=== PATIENT | female | born 1960 | race Caucasian/White ===

== ENCOUNTER 2018-10-05 09:11 | Outpatient (CLI) | payer MEDICARE, MEDICAID, SELFPAY ==
[2018-10-06 10:43] LABS: HCT 43.6 % (36.0-46.0); HGB 14.4 g/dL (12.0-15.5); Mean Corpuscular Hemoglobin 29.3 pg (27.0-33.0); Mean Corpuscular Volume 88.6 fL (80-95); Mean Platelet Volume 10.7 fL (8.0-11.0); Platelet Count 301 x1000/uL (130-400); RBC 4.92 m/cumm (4.00-5.20); RBC Distribution Width 13.2 % (11.7-14.6); White Blood Cell Count 6.76 k/cumm (4.4-10.8)
[2018-10-06 10:55] LABS: Hemoglobin A1C 6.1 % (4.5-6.2)
[2018-10-06 13:38] LABS: ALT 51 U/L (12-78); AST 30 U/L (15-37); Albumin 3.8 g/dL (3.4-5.0); Alkaline Phosphatase 96 U/L (46-116); Anion Gap 10.5 mmol/L (3-11); BUN 9 mg/dL (7-18); Bilirubin, Total 0.5 mg/dL (0.2-1.0); CO2 27.5 mmol/L (21.0-32.0); CREATININE 0.76 mg/dL (0.55-1.02); Calcium 9.6 mg/dL (8.5-10.1); Chloride 105 mmol/L (98-107); Glucose 122 mg/dL (70-100); Potassium 4.2 mmol/L (3.5-5.1); Sodium 143 mmol/L (136-145); TSH (W/Ref FT4) 3.72 uIU/mL (0.358-3.74); Total Protein 7.7 g/dL (6.4-8.2)
== END 2018-10-05 09:31 ==
PROVIDERS: PCP Family Medicine; Visit Provider Family Medicine
DX: I10 Essential (primary) hypertension (principal); R73.01 Impaired fasting glucose; G47.33 Obstructive sleep apnea (adult) (pediatric); E03.9 Hypothyroidism, unspecified
CPT/HCPCS: 36415; 80053; 85027; 83036; 84443

== ENCOUNTER 2019-07-28 12:54 | Outpatient (CLI) | payer MEDICARE, MEDICAID, SELFPAY ==
[2019-07-28 10:12] LABS: HCT 46.3 % (36.0-46.0); HGB 15.6 g/dL (12.0-15.5); Mean Corp. HGB Concentration 33.7 g/dL (32.0-36.0); Mean Corpuscular Hemoglobin 29.7 pg (27.0-33.0); Mean Platelet Volume 10.4 fL (8.0-11.0); Platelet Count 354 x1000/uL (130-400); RBC 5.26 m/cumm (4.00-5.20); White Blood Cell Count 8.09 k/cumm (4.4-10.8)
[2019-07-28 10:21] LABS: ALT 33 U/L (14-59); AST 17 U/L (15-37); Albumin 3.7 g/dL (3.4-5.0); Alkaline Phosphatase 98 U/L (46-116); Anion Gap 8.9 mmol/L (3-11); BUN 18 mg/dL (7-18); Bilirubin, Total 0.3 mg/dL (0.2-1.0); CO2 27.1 mmol/L (21.0-32.0); Calcium 9.3 mg/dL (8.5-10.1); Chloride 106 mmol/L (98-107); Glucose 119 mg/dL (74-106); Potassium 4.4 mmol/L (3.5-5.1); Sodium 142 mmol/L (136-145); TSH (W/Ref FT4) 3.44 uIU/mL (0.36-3.74); Total Protein 7.4 g/dL (6.4-8.2)
== END 2019-07-28 13:14 ==
PROVIDERS: PCP Family Medicine; Visit Provider Family Medicine
DX: E03.9 Hypothyroidism, unspecified (principal); E78.5 Hyperlipidemia, unspecified; R73.09 Other abnormal glucose; I27.20 Pulmonary hypertension, unspecified; R56.9 Unspecified convulsions
CPT/HCPCS: 36415; 80053; 85027; 83036; 84443

== ENCOUNTER 2019-10-24 01:24 | Outpatient (CLI) | payer MEDICARE, MEDICAID, SELFPAY ==
--- NOTE | 2019-10-24 14:15 | DI.CTLCSR_ITS ---
EXAM: CT CHEST LUNG CANCER SCREEN CLINICAL HISTORY: SCREENING FOR LUNG CANCER, Z87.891 PERS HX NICOTINE DEPENDENCE TECHNIQUE: Low-dose noncontrast COMPARISON: No exams were available for comparison FINDINGS: There is mild left atrial enlargement. There is minimal aorta calcification. The aorta is normal in d iameter. No coronary artery calcifications are seen. There are no pleural or pericardial effusions or evidence of adenopathy. The visualized portions of the upper abdominal organs are unremarkable. Ther e is linear scarring versus atelectasis in the lingula and left lower lobe. No pulmonary nodules are seen. Flowing osteophytes in the thoracic spine. IMPRESSION: Lung rads category 1, negative. Annual low-dose screening CT is recommended. Lung RADS Cat 1 - Negative: No nodules and definitely benign nodules
== END 2019-10-24 01:44 ==
PROVIDERS: PCP Family Medicine; Visit Provider Family Medicine
DX: Z12.2 Encounter for screening for malignant neoplasm of respiratory organs (principal); Z87.891 Personal history of nicotine dependence; J98.4 Other disorders of lung
CPT/HCPCS: G0297

== ENCOUNTER 2020-09-27 03:50 | Outpatient (CLI) | payer MEDICARE, MEDICAID, SELFPAY ==
[2020-09-27 13:11] LABS: ALT 34 U/L (14-59); AST 16 U/L (15-37); Albumin 3.6 g/dL (3.4-5.0); Alkaline Phosphatase 84 U/L (46-116); BUN 12 mg/dL (7-18); Bilirubin, Total 0.5 mg/dL (0.2-1.0); CREATININE 0.8 mg/dL (0.55-1.02); Calculated LDL 148 mg/dL (<100); Chloride 106 mmol/L (98-107); Cholesterol 197 mg/dL (<200); Glucose 117 mg/dL (74-106); HDL Cholesterol 36 mg/dL (40-60); Potassium 4.1 mmol/L (3.5-5.1); Sodium 144 mmol/L (136-145); TSH (W/Ref FT4) 2.38 uIU/mL (0.36-3.74); Total Protein 6.9 g/dL (6.4-8.2); Triglyceride 66 mg/dL (<150)
== END 2020-09-27 03:51 | disposition home or self-care (01) ==
LOC: LOS 03:50
PROVIDERS: PCP Family Medicine; Visit Provider Family Medicine
DX: E11.9 Type 2 diabetes mellitus without complications (principal); I10 Essential (primary) hypertension; E03.9 Hypothyroidism, unspecified; J44.9 Chronic obstructive pulmonary disease, unspecified; G47.33 Obstructive sleep apnea (adult) (pediatric)
CPT/HCPCS: 36415; 80053; 80061; 83036; 84443

== ENCOUNTER 2021-11-26 04:30 | Outpatient (CLI) | payer MEDICARE, MEDICAID, SELFPAY ==
[2021-11-26 14:46] LABS: Hemoglobin A1C 5.9 % (<5.7)
[2021-11-26 15:23] LABS: ALT 33 U/L (14-59); AST 17 U/L (15-37); Albumin 3.7 g/dL (3.4-5.0); Alkaline Phosphatase 97 U/L (46-116); Anion Gap 6.5 mmol/L (3-11); BUN 16 mg/dL (7-18); Bilirubin, Total 0.5 mg/dL (0.2-1.0); CO2 28.5 mmol/L (21.0-32.0); CREATININE 0.7 mg/dL (0.55-1.02); Calcium 8.7 mg/dL (8.5-10.1); Chloride 101 mmol/L (98-107); Glucose 102 mg/dL (74-106); Potassium 4.3 mmol/L (3.5-5.1); Sodium 136 mmol/L (136-145); Total Protein 7.2 g/dL (6.4-8.2)
== END 2021-11-26 04:31 | disposition home or self-care (01) ==
LOC: LBO 04:30
PROVIDERS: PCP Family Medicine; Visit Provider Family Medicine
DX: R73.01 Impaired fasting glucose (principal); E78.5 Hyperlipidemia, unspecified; I27.20 Pulmonary hypertension, unspecified
CPT/HCPCS: 80053; 83036

== ENCOUNTER 2023-02-16 09:44 | Outpatient (CLI) | payer MEDICARE, MEDICAID, SELFPAY ==
[2023-02-16 12:32] LABS: HCT 46.7 % (36.0-46.0); HGB 15.3 g/dL (11.2-15.7); MCH 28.7 pg (27.0-33.0); MCHC 32.8 % (32.0-36.0); MCV 88 fL (80-95); MPV 9.9 fL (8.0-11.0); Platelet Count 302 10^3/uL (130-400); RBC 5.33 10^6/uL (3.93-5.22); RDW 13.2 % (11.7-14.6); RDW-SD 42.5 fL; WBC 7.27 10^3/uL (4.4-10.8)
[2023-02-16 13:06] LABS: ALT 43 U/L (14-59); AST 20 U/L (15-37); Albumin 3.7 g/dL (3.4-5.0); Alkaline Phosphatase 80 U/L (46-116); Anion Gap 10.6 mmol/L (3-11); BUN 13 mg/dL (7-18); Bilirubin, Total 0.4 mg/dL (0.2-1.0); CO2 29.4 mmol/L (21.0-32.0); CREATININE 0.7 mg/dL (0.55-1.02); Calcium 9.5 mg/dL (8.5-10.1); Chloride 105 mmol/L (98-107); Estimated GFR 98.95 (mL/min/1.73m2); Glucose 123 mg/dL (74-106); Sodium 145 mmol/L (136-145); TSH (W/Ref FT4) 2.05 uIU/mL (0.36-3.74); Total Protein 8.1 g/dL (6.4-8.2)
[2023-02-16 13:10] LABS: Hemoglobin A1C 5.9 % (<5.7)
== END 2023-02-16 09:45 | disposition home or self-care (01) ==
LOC: LOS 09:44
PROVIDERS: PCP Family Medicine; Referring Provider Family Medicine; Visit Provider Family Medicine
DX: E03.9 Hypothyroidism, unspecified (principal); I10 Essential (primary) hypertension; E11.9 Type 2 diabetes mellitus without complications; F25.9 Schizoaffective disorder, unspecified
CPT/HCPCS: 36415; 80053; 85027; 83036; 84443

== ENCOUNTER 2023-08-11 10:18 | Outpatient (REF) | payer MEDICARE, MEDICAID, SELFPAY ==
--- NOTE | 2023-08-11 10:00 | PAPFT_PTH ---
PATIENT: Rosemary Davidson LOC: [facility] U#:[id number] AGE/SX: 63/F ROOM: RE08/11/[address]: Georgette Cloud MD, DC : 1960 BED: DIS: 08/11/2023 SPEC #: [id number] RECD: 08/11/23 12:54 STATUS: CHERRI REDmitriy #: [id number] PATTIE: 08/11/23 10:[address]: Georgette Cloud DEPT: [facility] Cytology RECD BY: Mandy Gray Tissues: 1 - CX/ENDOCX FOR PAP SMEARS Procedures: PAP THIN PREP/UVM Screening HPV DNA PROBE Comments: [id number]
== END 2023-08-11 10:19 | disposition home or self-care (01) ==
LOC: LBN 10:18
PROVIDERS: PCP Family Medicine; Visit Provider Family Medicine
DX: Z12.4 Encounter for screening for malignant neoplasm of cervix (principal); Z11.51 Encounter for screening for human papillomavirus (HPV)
CPT/HCPCS: 88142; 87624

== ENCOUNTER 2023-08-27 10:18 | Outpatient (CLI) | payer MEDICARE, MEDICAID, SELFPAY ==
[2023-08-27 13:32] LABS: Abs Immature Grans 0.03 10^3/uL (0.0-0.06); Absolute Basophil Count 0.06 10^3/uL (0.0-0.2); Absolute Eosinophil Count 0.19 10^3/uL (0.0-0.7); Absolute Monocyte Count 0.46 10^3/uL (0.1-0.8); Absolute Neutrophil Count 4.69 10^3/uL (1.2-6.7); Basophils % 0.8; Eosinophils % 2.4; HCT 43.7 % (36.0-46.0); HGB 14.7 g/dL (11.2-15.7); Immature Grans % 0.4; Lymphocytes % 30.7; MCH 29.8 pg (27.0-33.0); MCHC 33.6 % (32.0-36.0); MCV 89 fL (80-95); MPV 9.5 fL (8.0-11.0); Monocytes % 5.9; Neutrophils % 59.8; Platelet Count 294 10^3/uL (130-400); RBC 4.94 10^6/uL (3.93-5.22); RDW 12.6 % (11.7-14.6); WBC 7.83 10^3/uL (4.4-10.8)
[2023-08-27 13:56] LABS: ALT 46 U/L (14-59); AST 24 U/L (15-37); Albumin 3.2 g/dL (3.4-5.0); Alkaline Phosphatase 89 U/L (46-116); Anion Gap 8.7 mmol/L (3-11); BUN 14 mg/dL (7-18); Bilirubin, Total 0.3 mg/dL (0.2-1.0); CO2 28.3 mmol/L (21.0-32.0); CREATININE 0.6 mg/dL (0.55-1.02); Calcium 9.2 mg/dL (8.5-10.1); Chloride 103 mmol/L (98-107); Estimated GFR 102.06 (mL/min/1.73m2); Glucose 116 mg/dL (74-106); Potassium 4.1 mmol/L (3.5-5.1); Sodium 140 mmol/L (136-145); Total Protein 7.4 g/dL (6.4-8.2)
[2023-09-01 09:09] LABS: 9-Hydroxyrisperidone 28.4 ng/ml; Risperidone (Risperdal) 14.2 ng/ml
== END 2023-08-27 10:19 | disposition home or self-care (01) ==
LOC: LBO 10:18
PROVIDERS: PCP Family Medicine; Visit Provider Family Medicine
DX: R43.1 Parosmia (principal); I10 Essential (primary) hypertension
CPT/HCPCS: 36415; 80053; 82542; 85025

== ENCOUNTER → 2023-09-10 03:00 | Outpatient (CLI) | payer MEDICARE, MEDICAID, SELFPAY ==
--- NOTE | 2023-09-10 08:00 | DI.DEXA_ITS ---
Exam(s) XR DEXA BONE DENSITY W/WO KAREEM EXAM: XR DEXA BONE DENSITY W/WO KAREEM CLINICAL HISTORY: screening for osteoporosis in postmenopausal woman,z78.0 TECHNIQUE: Holoe[employer] Horizon C densitometer analysis of left hip, lumbar spine and left forearm. Lat eral survey image of the thoracic and lumbar spine. COMPARISON: No exams were available for comparison FINDINGS: Lateral view of the thoracic and lumbar spine shows no evidence of compression fractures. Bone mineral density measurements of the lumbar spine correspond to a total T-score of 0.5, in the no rmal range. Bone mineral density measurements of the left hip correspond to a total T-score of 0.5. The femoral neck T-score is 0.0, in the normal range.. Theleft forearm bone mineral density measurements correspond to a T-score of the distal 3rd of 0.5, in the normal range.. IMPRESSION: Normal bone mineral density.
--- NOTE | 2023-09-10 09:00 | DI.CTLCSR_ITS ---
Exam(s) CT CHEST LUNG CANCER SCREEN EXAM: CT CHEST LUNG CANCER SCREEN CLINICAL HISTORY: Screening for lung cancer Z87.891 PERS HX NICOTINE DEPENDENCE TECHNIQUE: Imaging Protocol: Axial computed tomography images with coronal and sagittal reformatted images were created and reviewed. Low dose screening protocol. COMPARISON: CT CT CHEST LUNG CANCER SCREEN from 10/24/2019 FINDINGS: Tracheobronchial tree: No bronchiectasis or mucus plugging.. Mediastinum and [place]: No dominant adenopathy or fluid collection. Pulmonary parenchyma: No consolidation or dominant measurable mass. Minimal emphysematous changes. M ild scarring right middle lobe, lingula and left lower lobe. Lung Nodules: None. Pleura: No effusion. No pneumothorax. Heart: The heart is mildly dilated. No coronary artery calcifications are seen. Aorta: Thoracic aorta non-dilated. Upper abdomen: Unremarkable. Bones: Flowing osteophytes in the thoracic spine. Soft Tissues: Unremarkable. IMPRESSION: No suspicious pulmonary nodules. Lung RADS Cat 1 - Negative: No nodules and definitely benign nodules Lung-RADS 1.0 CATEGORIES: Category 0 - Prior chest CT exam(s) being located for comparison. Category 1 - Annual screening in 12 months. No nodules or definitely benign nodules. Category 2 - Annual screening in 12 months. Benign appearance. Nodules with low likelihood of becomin g active cancer. Category 3 - 6-month follow-up. Probably benign. Short-term follow-up suggested. Nodules with low lik elihood of becoming active cancer. Category 4A - 3-month follow-up and CT/PET if >8 mm in size. Suspicious finding. Findings which requi re additional testing. Category 4B - Findings which require additional testing and tissue sampling. Category 4X - Category 3 or 4 nodules with additional features or imaging findings that increases the suspicion of malignancy. Modifier S- Potentially clinically significant findings (non lung cancer) RADIATION DOSE DELIVERED: 73.26mGy.cm Total DLP DATA REPOSITORY: All CT scans at this facility are submitted to the National Radiology Data Registry (NRDR) Dose Index Registry (DIR) with the [employer] (ACR). RADIATION OPTIMIZATION: All CT scans at this facility use at least one of these dose optimization te chniques: automated exposure control; mA and/or kV adjustment per patient size (includes targeted exa ms where dose is matched to clinical indication); or iterative reconstruction.
== END ==
PROVIDERS: PCP Family Medicine; Visit Provider Family Medicine
DX: Z78.0 Asymptomatic menopausal state (principal); Z87.891 Personal history of nicotine dependence; Z12.2 Encounter for screening for malignant neoplasm of respiratory organs; Z13.820 Encounter for screening for osteoporosis
CPT/HCPCS: 71271; 77080

== ENCOUNTER 2024-05-05 03:34 | Outpatient (CLI) | payer MEDICARE, MEDICAID, SELFPAY ==
[2024-05-05 12:38] LABS: HCT 47.8 % (36.0-46.0); HGB 15.7 g/dL (11.2-15.7); MCH 29.6 pg (27.0-33.0); MCHC 32.8 % (32.0-36.0); MCV 90 fL (80-95); Platelet Count 337 10^3/uL (130-400); RDW 12.6 % (11.7-14.6); RDW-SD 41.6 fL; WBC 7.87 10^3/uL (4.4-10.8)
[2024-05-05 13:09] LABS: ALT 59 U/L (14-59); AST 26 U/L (15-37); Albumin 3.6 g/dL (3.4-5.0); Alkaline Phosphatase 89 U/L (46-116); Anion Gap 6.5 mmol/L (3-11); BUN 22 mg/dL (7-18); Bilirubin, Total 0.34 mg/dL (0.2-1.0); CO2 28.5 mmol/L (21.0-32.0); CREATININE 0.8 mg/dL (0.55-1.02); Calcium 9.5 mg/dL (8.5-10.1); Calculated LDL 164 mg/dL (<100); Chloride 104 mmol/L (98-107); Cholesterol 229 mg/dL (<200); Estimated GFR 83.78 (mL/min/1.73m2); Glucose 127 mg/dL (74-106); HDL Cholesterol 46 mg/dL (40-60); Potassium 4.4 mmol/L (3.5-5.1); Sodium 139 mmol/L (136-145); TSH (W/Ref FT4) 2.97 uIU/mL (0.36-3.74); Total Protein 7.5 g/dL (6.4-8.2); Triglyceride 95 mg/dL (<150)
== END 2024-05-05 03:35 | disposition home or self-care (01) ==
LOC: LOS 03:34
PROVIDERS: PCP Family Medicine; Visit Provider Family Medicine
DX: I10 Essential (primary) hypertension (principal); E03.9 Hypothyroidism, unspecified; E11.9 Type 2 diabetes mellitus without complications; Z79.01 Long term (current) use of anticoagulants
CPT/HCPCS: 36415; 80053; 80061; 85027; 83036; 84443

== ENCOUNTER 2025-03-15 14:07 | Outpatient (REF) | payer MEDICARE, MEDICAID, SELFPAY ==
[2025-03-15 09:33] LABS: ALT 113 U/L (14-59); AST 54 U/L (15-37); Albumin 3.7 g/dL (3.4-5.0); Alkaline Phosphatase 146 U/L (46-116); Anion Gap 5.6 mmol/L (3-11); BUN 13 mg/dL (7-18); Bilirubin, Total 0.7 mg/dL (0.2-1.0); CO2 32.4 mmol/L (21.0-32.0); Calcium 9.1 mg/dL (8.5-10.1); Chloride 100 mmol/L (98-107); Estimated GFR 97.72 (mL/min/1.73m2); Glucose 149 mg/dL (74-106); Potassium 4.2 mmol/L (3.5-5.1); Sodium 138 mmol/L (136-145); Total Protein 7.1 g/dL (6.4-8.2); Vitamin B12 618 pg/mL (193-986)
[2025-03-15 09:44] LABS: Hemoglobin A1C 6.1 % (<5.7)
== END 2025-03-15 14:08 | disposition home or self-care (01) ==
LOC: LBN 14:07
PROVIDERS: PCP Family Medicine; Visit Provider Family Medicine
DX: E11.9 Type 2 diabetes mellitus without complications (principal); K21.9 Gastro-esophageal reflux disease without esophagitis; I10 Essential (primary) hypertension; R79.89 Other specified abnormal findings of blood chemistry
CPT/HCPCS: 80053; 86704; 86709; 86803; 87340; 82607; 83036

== ENCOUNTER 2025-04-13 18:18 | Outpatient (REF) | payer MEDICARE, MEDICAID, SELFPAY ==
[2025-04-13 14:03] LABS: ALT 60 U/L (14-59); AST 32 U/L (15-37); Albumin 3.6 g/dL (3.4-5.0); Alkaline Phosphatase 96 U/L (46-116); Anion Gap 9.3 mmol/L (3-11); BUN 13 mg/dL (7-18); Bilirubin, Total 0.4 mg/dL (0.2-1.0); CO2 29.7 mmol/L (21.0-32.0); Calcium 9.3 mg/dL (8.5-10.1); Chloride 102 mmol/L (98-107); Estimated GFR 83.26 (mL/min/1.73m2); Glucose 140 mg/dL (74-106); Potassium 4.9 mmol/L (3.5-5.1); Sodium 141 mmol/L (136-145); Total Protein 7.0 g/dL (6.4-8.2)
== END 2025-04-13 18:19 | disposition home or self-care (01) ==
LOC: LBN 18:18
PROVIDERS: PCP Family Medicine; Visit Provider Family Medicine
DX: I10 Essential (primary) hypertension (principal); R74.9 Abnormal serum enzyme level, unspecified
CPT/HCPCS: 80053

== ENCOUNTER 2025-04-26 12:37 | Outpatient (REF) | payer MEDICARE, MEDICAID, SELFPAY ==
[2025-04-26 13:17] LABS: Glucose Negative (Negative)
[2025-04-26 13:28] LABS: C & S Indicated? No; WBC 0-2 HPF (0-5)
[2025-04-27 11:33] LABS: Chlamydia Result Negative (Negative); GC Result Negative (Negative)
== END 2025-04-26 12:38 | disposition home or self-care (01) ==
LOC: LBN 12:37
PROVIDERS: PCP Family Medicine; Visit Provider Family Medicine
DX: N89.8 Other specified noninflammatory disorders of vagina (principal); R30.0 Dysuria
CPT/HCPCS: 87491; 87591; 81003; 81015; 87480; 87510; 87660

== ENCOUNTER 2025-06-29 14:40 | Outpatient (CLI) | payer MEDICARE, MEDICAID, SELFPAY ==
[2025-06-29 15:51] LABS: HCT 47.3 % (36.0-46.0); HGB 15.8 g/dL (11.2-15.7); MCH 29.4 pg (27.0-33.0); MCHC 33.4 % (32.0-36.0); MCV 88 fL (80-95); MPV 9.5 fL (8.0-11.0); Platelet Count 345 10^3/uL (130-400); RBC 5.37 10^6/uL (3.93-5.22); RDW 12.5 % (11.7-14.6); RDW-SD 40.6 fL; WBC 9.51 10^3/uL (4.4-10.8)
[2025-06-29 16:13] LABS: ALT 52 U/L (14-59); AST 31 U/L (15-37); Albumin 3.4 g/dL (3.4-5.0); Alkaline Phosphatase 93 U/L (46-116); Anion Gap 8.1 mmol/L (3-11); BUN 11 mg/dL (7-18); Bilirubin, Total 0.3 mg/dL (0.2-1.0); CO2 28.9 mmol/L (21.0-32.0); Calcium 9.3 mg/dL (8.5-10.1); Chloride 103 mmol/L (98-107); Glucose 111 mg/dL (74-106); Potassium 4.2 mmol/L (3.5-5.1); Sodium 140 mmol/L (136-145); TSH (W/Ref FT4) 2.35 uIU/mL (0.36-3.74); Total Protein 7.5 g/dL (6.4-8.2)
== END 2025-06-29 14:41 | disposition home or self-care (01) ==
LOC: LOS 14:41
PROVIDERS: PCP Family Medicine; Visit Provider Family Medicine
DX: E03.9 Hypothyroidism, unspecified (principal); I10 Essential (primary) hypertension; N93.9 Abnormal uterine and vaginal bleeding, unspecified
CPT/HCPCS: 36415; 80053; 85027; 84443

== ENCOUNTER 2025-06-29 16:12 | Outpatient (REF) | payer MEDICARE, MEDICAID, SELFPAY | END 2025-06-29 16:13 | disposition home or self-care (01) | LOC: LBN 16:12 | PROVIDERS: PCP Family Medicine; Visit Provider Family Medicine | DX: N76.0 Acute vaginitis (principal) | CPT/HCPCS: 87480; 87510; 87660 ==

== ENCOUNTER → 2025-07-18 01:34 | Outpatient (CLI) | payer MEDICARE, MEDICAID, SELFPAY ==
--- NOTE | 2025-07-18 07:15 | DI.US_ITS ---
Exam(s) US PELVIS EXAM: US PELVIS CLINICAL HISTORY: vaginal bleeding,N93.9 TECHNIQUE: Transabdominal imaging was performed using standard protocol. COMPARISON: CT CT ABDOMEN PELVIS W from 07/18/2025 FINDINGS: The bladder is unremarkable. UTERUS: Anteverted. 5.7 x 3.3 x 4.9 cm Endometrium: Thickened at 13 mm . Heterogeneous and vascular. Small cysts and calcifications. Myometrium: Unremarkable. Cervix: Unremarkable. OVARIES: Right: Cyst or mass: None. Left: Cyst or mass: None. DOPPLER: Color: Symmetric and uniform flow to both ovaries. No hyperemia. CUL-DE-SAC: Free fluid: None. IMPRESSION: 1. Markedly thickened and heterogeneous as well as vascular endometrium. Endometrial biopsy recommended. 2. Unremarkable bilateral ovaries. DATA REPOSITORY:
[2025-07-18] MEDS: Normal Saline Flush 10 ML SYR IVP (14:00)
[2025-07-18] MEDS: Omnipaque 350 MG/ML 100 ML BTL IJ (14:01)
[2025-07-18] MEDS: Normal Saline - Diluent 50 ML VIAL IJ (14:01)
--- NOTE | 2025-07-18 14:05 | DI.CT_ITS ---
Exam(s) CT ABDOMEN PELVIS W EXAM: CT ABDOMEN PELVIS W CLINICAL HISTORY: vaginal bleeding/schizo. TECHNIQUE: Imaging Protocol: Axial computed tomography images with coronal and sagittal reformatted images were created and reviewed CONTRAST MATERIAL: Intravenous: Omnipaque 350 Contrast volume:100 ml Oral: yes COMPARISON: CT ABD PELVIS WITH CONTRAST from 01/09/2010 US ABDOMEN ULTRASOUND (P) from 07/07/2014 US ABDOMEN ULTRASOUND (P) from 10/29/2017 FINDINGS: ABDOMEN and PELVIS: Lung Bases: No acute findings. Liver: Hepatic steatosis. Stable hemangioma in the inferior right lobe of the liver. No suspicious mass. Gallbladder and biliary tract: No radiodense calculus. No wall thickening or pericholecystic fluid. No biliary dilation. Pancreas: Normal density. No abnormal calcifications or inflammatory process. No evidence of mass. Spleen: Normal. Kidneys: Normal size, contour and axis. No radiodense stones. No obstructive uropathy. No suspicious masses seen. Adrenal glands: No masses seen. Vasculature: Abdominal aorta non-dilated. Soft tissues: Unremarkable. Bladder: No gross wall thickening. No calculi.No focal mass. Bowel: No obstruction. No bowel wall thickening. Appendix normal. Peritoneal cavity: No ascites. No focal collection. No mesenteric inflammatory response. No free air. Bones: Unremarkable for age. Reproductive organs: The uterus is normal in size however there is abnormal endometrial thickening up to 2 cm which also appears heterogeneous. The ovaries are unremarkable. Lymph nodes: No pathologically enlarged lymph nodes. IMPRESSION:: Heterogeneous and abnormally thickened endometrium up to 2 cm. Gynecologic consult an endometrial biopsy should be considered. Stable hemangioma inferior right lobe of the liver. Unexpected findings RADIATION DOSE DELIVERED: Total DLP DATA REPOSITORY: All CT scans at this facility are submitted to the National Radiology Data Registry (NRDR) Dose Index Registry (DIR) with the [employer] (ACR). RADIATION OPTIMIZATION: All CT scans at this facility use at least one of these dose optimization techniques: automated exposure control; mA and/or kV adjustment per patient size (includes targeted exams where dose is matched to clinical indication); or iterative reconstruction.
== END ==
LOC: DI 01:34
PROVIDERS: PCP Family Medicine; Visit Provider Family Medicine
DX: N93.9 Abnormal uterine and vaginal bleeding, unspecified (principal); R93.89 Abnormal findings on diagnostic imaging of other specified body structures
CPT/HCPCS: 74177; 76856; J3490

== ENCOUNTER 2025-08-07 00:54 | Outpatient (CLI) | payer MEDICARE, MEDICAID, SELFPAY ==
[2025-08-07 13:42] LABS: Abs Immature Grans 0.04 10^3/uL (0.0-0.06); HCT 44.5 % (36.0-46.0); HGB 14.9 g/dL (11.2-15.7); Immature Grans % 0.4 %; MCH 28.7 pg (27.0-33.0); MCHC 33.5 % (32.0-36.0); MCV 86 fL (80-95); MPV 9.3 fL (8.0-11.0); Platelet Count 301 10^3/uL (130-400); RBC 5.19 10^6/uL (3.93-5.22); RDW 12.7 % (11.7-14.6); RDW-SD 39.6 fL; WBC 9.04 10^3/uL (4.4-10.8)
== END 2025-08-07 00:55 | disposition home or self-care (01) ==
LOC: LBO 00:54
PROVIDERS: PCP Family Medicine; Visit Provider Obstetrics & Gynecology
DX: Z01.818 Encounter for other preprocedural examination (principal)
CPT/HCPCS: 36415; 86850; 86900; 86901; 85025

== ENCOUNTER 2025-08-09 11:51 | Observation (INO) | payer MEDICARE, MEDICAID, SELFPAY ==
--- NOTE | 2025-08-08 17:07 | W.ANESPRE ---
General Info Date of Service Date Performed: 08/09/25 Height: 5 ft 0.75 in Weight: 85.275 kg Body Mass Index (BMI): 35.8 Surgical Procedure: Operation Date: 08/09/25 09:10 Proposed Procedure Side Surgeon p Dilation & Curettage with Hysteroscopy Alina Flores DO Meds Allergies and Home Medications Allergies Allergy/AdvReac Type Severity Reaction Status Date / Time atorvastatin AdvReac Intermediate MYALGIAS Verified 08/09/25 08:15 divalproex sodium (From AdvReac Intermediate abdominal Verified 08/09/25 08:15 Depakote) pain Sulfa (Sulfonamide AdvReac Mild NAUSEA Verified 08/09/25 08:15 Antibiotics) tetracycline AdvReac Unknown GI UPSET Verified 08/09/25 08:15 Home Medication ?Medication ?Instructions ?Recorded C-Pap 12/22/12 docusate sodium 100 mg capsule 1 - 2 cap PO DAILY 02/10/13 (Colace) aspirin 81 mg tablet,delayed 81 mg PO DAILY #100 tab-caps 04/28/15 release cholecalciferol (vitamin D3) 25 1,000 unit PO DAILY 08/21/15 mcg (1,000 unit) tablet omeprazole 20 mg tablet,delayed 20 mg PO DAILY #90 tabs 11/16/23 release loxapine succinate 10 mg capsule 10 mg PO BID 09/05/24 loxapine succinate 5 mg capsule 5 mg PO BID 09/05/24 nebulizers (AeroEclipse II #1 ea 02/02/25 Nebulizer) ipratropium 0.5 mg-albuterol 3 mg 3 ml inhalation QID PRN wheezing 02/10/25 (2.5 mg base)/3 mL nebulization #180 mL soln albuterol sulfate 90 mcg/actuation 2 puff inhalation Q6H PRN 02/15/25 aerosol inhaler shortness of breath or wheezing #8.5 grams inhalational spacing device #1 ea 02/22/25 (Aerochamber MV spacer) risperidone 2 mg tablet 1 mg PO QHS 03/20/25 metoprolol succinate 100 mg 100 mg PO DAILY #90 tab-caps 05/03/25 tablet,extended release 24 hr diclofenac sodium 1 % topical gel 4 g topical QID #100 grams 06/12/25 (Arthritis Pain (diclofenac)) clonazepam 0.5 mg tablet (Klonopin) 0.5 mg PO QID 06/29/25 lisinopril 10 mg tablet 10 mg PO DAILY #90 tabs 06/29/25 Current Visit Medications: Current Medications Generic Name Dose Route Start Last Admin Trade Name Freq PRN Reason Stop Dose Admin Ringer's Solution 1,000 mls @ 125 mls/hr 08/09/25 06:00 IV 08/09/25 23:59 INFUSION KALPANA Sodium Chloride 0 ml 08/09/25 06:00 Normal Saline Flush 10 Ml Syr IV 08/09/25 23:59 PRN PRN Sodium Chloride 0 ml 08/09/25 06:00 Normal Saline 10 Ml Vial IJ 08/09/25 23:59 DIRECTED PRN Sterile Water 0 ml 08/09/25 06:00 Water,Injection,Sterile 10 Ml Vial IJ 08/09/25 23:59 DIRECTED PRN PFSH Active Problems Active Problems: Problem Status Onset Code Endometrial thickening on ultrasound Acute R93.89 Vaginal bleeding Acute N93.9 Vaginal discharge Acute N89.8 Bacterial vaginosis Acute N76.0, B96.89 Elevated LFTs Acute R79.89 Abnormal smell Acute R43.1 Hypothyroidism Acute 02/10/13 E03.9 Vitamin D deficiency Chronic 10/21/12 E55.9 Serous retinal detachment Chronic H33.20 Seizure-like activity Chronic 01/07/16 R56.9 Schizoaffective disorder Chronic 08/30/13 F25.9 Pulmonary hypertension Chronic 04/29/16 I27.20 Posttraumatic stress disorder Chronic F43.10 Polyp of colon Chronic 04/14/13 K63.5 Obstructive sleep apnea syndrome Chronic G47.33 Mitral valve insufficiency Chronic 04/29/16 I34.0 Liver hemangioma Chronic 12/22/14 D18.03 Impaired fasting glucose Chronic 02/10/13 R73.01 Hyperlipidemia Chronic 02/10/13 E78.5 Hirsutism Chronic L68.0 Gastroesophageal reflux disease Chronic K21.9 Essential hypertension Chronic I10 Diaphoresis Chronic 04/24/16 R61 Chronic obstructive lung disease Chronic J44.9 Balance disorder Chronic 04/24/16 R26.89 Autistic disorder Chronic F84.0 Medical History Medical History Bradycardia (06/03/16) Elevated antinuclear antibody (MAYI) level (05/28/16) History of tobacco use Postmenopausal bleeding (08/30/13) Postmenopausal bleeding (08/30/13) [facility] eval and D&C, benign polyps Left sided numbness (04/27/15) [facility] [place]: ? migraine, ? seizure (EEG neg) Elevated blood pressure reading without diagnosis of hypertension (01/07/16) Elevated antinuclear antibody (MAYI) level (05/28/16) Surgical History Surgical History Hx of detached retina repair History of cataract removal with insertion of prosthetic lens Cervical Procedure BX; BENIGN Extraction of cataract Tobacco Smoking/Tobacco Use Status: Former Tobacco Use Passive smoking exposure: Yes Second hand exposure: Yes Alcohol Alcohol Intake: never Substance Use Substance use: Never Substance use type: does not use Vital Signs and Lab Results Lab Results Blood Type / Crossmatch: Antibody Screen NEGATIVE 08/07/25 Complete Blood Count: WBC, (4.4-10.8) 9.04 10^3/uL 08/07/25, 13:33 RBC, (3.93-5.22) 5.19 10^6/uL 08/07/25, 13:33 Hgb, (11.2-15.7) 14.9 g/dL 08/07/25, 13:33 Hct, (36.0-46.0) 44.5 % 08/07/25, 13:33 Plt Count, (130-400) 301 10^3/uL 08/07/25, 13:33 Imaging and Studies Imaging and Studies Study information below may be from another EMR and interpreted by another provider. Please see original notes in EMR for more complete details. Echocardiogram Summary: 04/29/16 Summary: 1. Left ventricle: The cavity size was normal. Wall thickness was normal. Systolic function was hyperdynamic. The estimated ejection fraction was 65-70%. Wall motion was normal; there were no regional wall motion abnormalities. 2. Aortic valve: There was mild regurgitation. 3. Mitral valve: There was moderate regurgitation. 4. Right ventricle: The cavity size was normal. Systolic function was mildly reduced. 5. Atrial septum: No defect or patent foramen ovale was identified. 6. Pulmonary arteries: Pulmonary systolic pressure was in the range of 55mm Hg to 65mm Hg. 7. Inferior vena cava: The vessel was normal in size. The respirophasic diameter changes were in the normal range (greater than or equal to 50%), consistent with normal central venous pressure./ Carotid Artery Summary:: 06/20/14 CAROTID ULTRASOUND: The carotids are free of plaque. There is no evidence of right or left carotid stenosis. Antegrade flow is noted in the vertebrals. SUMMARY: No evidence of carotid stenosis. Anesthesia Assessment and Plan Anesthesia History Personal History: No History of Anesthesia Complications Family History: No Family History of Anesthesia Complications Exercise Tolerance Exercise Tolerance: Metabolic Equivalents>4 Pertinent Negatives Pertinent Negatives: No Symptoms of GERD, No Major Cardiovascular Symptoms or Complaints, No Major Pulmonary Symptoms or Complaints and No History of CVA/TIA Cardiac & Pulmonary Exam Cardiac Exam: Normal S1/S2 Heart Sounds Pulmonary Exam: Clear Bilateral Breath Sounds Implantable Cardiac Device Does patient have a Pacemaker or an ICD?: No Airway Exam Known Difficult Airway: No Mallampati Class: 2 Mouth Opening: Normal (> 3cm) Thyromental Distance: Greater than 3 cm Neck Range of Motion: Full ROM Neck Circumference: Normal Teeth Condition: Normal Dentition ASA Classification ASA Score: ASA 2 Emergency Case?: No NPO Status NPO Status: NPO Clears >2 hours, Solids >8 hours Anesthesia Plan Resuscitation Status: Full Code Anesthesia Technique: General Anesthesia Airway Planned: Natural Airway Monitors Used: Standard Monitors
[2025-08-09] VITALS (56 sets, daily range): BP systolic 113–161; BP diastolic 59–123; PULSE 63–145; RESP 9–28; TEMP 36.3–36.8; O2SAT 92–99; BMI 35.8
[2025-08-09] MEDS: Lactated Ringers 1,000 ML 125 ML IV (08:50)
--- NOTE | 2025-08-09 10:40 | ENDO_PTH ---
PATIENT: Rosemary Davidson LOC: U#:[id number] AGE/SX: 65/F ROOM: 205 RE08/09/[address]: Alina Flores DO : 1960 BED: A DIS: 08/10/2025 SPEC #: [id number] RECD: 08/09/25 12:28 STATUS: CHERRI REQ #: [id number] PATTIE: 08/09/25 10:[address]: Alina Flores DEPT: Surgical Specimen RECD BY: Mandy Gray ENTERED: 08/09/25 12:29 SP TYPE: Endo OTHR DR: Georgette Cloud MD, DC Tissues: 1 - ENDOCERVICAL BX/CURRETTE 2 - ENDOMETRIUM BX/CURRETTE Procedures: GROSS AND MICRO LEVEL 4 Comments: [id number]
--- NOTE | 2025-08-09 10:45 | RT.EKG_ITS ---
APPROVED REPORT Exam: Resting ECG Reason for Exam: New onset rapid afib Patient Location: O HR:132 bpm ECG Measurements Heart Rate 132 AXIS MS [id number] P [id number] QRSd 79 QRS 61 QT 323 T 88 QTc 479 Conclusion Atrial fibrillation..
--- NOTE | 2025-08-09 11:10 | W.PM.OP ---
Operative Note Operative Note PRE-OP DIAGNOSIS: Thickened endometrium, postmenopausal bleeding POST-OP DIAGNOSIS: same (With endometrial polyp) New onset atrial fibrillation PROCEDURE: Hysteroscopy, dilation and curettage SURGEON: Alina Flores ANESTHESIA TYPE: General:No Airway Refer to Anesthesia Record ESTIMATED BLOOD LOSS: 10 PATHOLOGY: other (1. Endocervical curettage 2. Endometrial curettage) COMPLICATIONS: Other (Intraoperative bradycardia with new onset of atrial fibrillation) Patient was transported to: PACU Patient's condition: stable Indications: Thickened endometrium, postmenopausal bleeding Findings: Globally diffuse thickened endometrium with polypoid structure. Procedure Description: Patient is a 65-year-old female with thickened endometrium and postmenopausal bleeding. She would be unable to tolerate examination in the office. She was taken the operating suite for her procedure which was hysteroscopy with dilation and curettage. Full informed consent had been obtained. She had had preoperative surgical clearance. She has seen her assembler latches and springs recently. She is placed in dorsal supine position and general anesthesia administered. She had pneumatic compression stockings for DVT prophylaxis. She was placed in the modified dorsolithotomy position in [facility] stirrups. No antibiotic prophylaxis was warranted. She was prepped and draped in usual sterile fashion. Exam under anesthesia revealed a uterus that is midline and mobile and slightly limited due to body habitus. A small Lorin speculum was placed into the vaginal vault and cervical os identified. A single-tooth tenaculum used to grasp the anterior lip of the cervix. Cervical os gradually dilated to the point that a 4 mm hysteroscope could be passed with ease. Hysteroscopic examination of the endometrial cavity revealed irregular endometrial tissue with polypoid structure in the anterior lower uterine segment. At this point the hysteroscope portion was discontinued, and initial curettage of the endocervix was performed for scant tissue. While attempting to obtain an endometrial sample and removal of polyp with polyp stone forcep, patient had a bradycardic episode. At that point the procedure was halted and attention was given via anesthesia. Patient had identified his new onset of atrial fibrillation with stable blood pressure. At this point, with stability, endometrial sampling was performed and the remainder of the hysteroscope portion discontinued. Total fluid deficit from her procedure was 90 mL of normal saline. At this point the speculum was removed and tenaculum removed from her lip of the cervix. Puncture sites were hemostatic. Patient was returned to the dorsal supine position and awoken anesthesia without difficulty. She remained in atrial fibrillation with stable blood pressure. In the postanesthesia care unit patient had an EKG which was persistent atrial fibrillation with stable blood pressure. Laboratory studies are drawn. Cardiology was notified. Her primary assembler latches and springs is not present today and they suggested post discharge evaluation in the emergency department. EBL: 10 mL Findings: As described above with endometrial and endocervical curettage and noted endometrial polyp. Entirety of the polyp not able to be resected due to the patient's new bradycardia and atrial fibrillation with an abundance of caution for maintenance of cardiovascular status. Pathology: 1. Endocervical curettage 2. Endometrial curettage Date of Procedure: 08/09/25
[2025-08-09] MEDS: dilTIAZem 25 MG/5 ML VIAL (11:38)
--- NOTE | 2025-08-09 11:51 | W.PM.PROGNOT ---
Date of Service Date of service: 08/09/25 Time of Service: 11:52 Assessment and Plan Assessment and plan (1) Status post dilation and curettage: Status: Acute (2) Endometrial thickening on ultrasound: Status: Acute (3) Vaginal bleeding: Status: Acute (4) New onset atrial fibrillation: Status: Acute Assessment and plan: Patient developed new onset atrial fibrillation after an episode of bradycardia in the OR. She was undergoing hysteroscopy with dilation and curettage for evaluation of thickened endometrium and postmenopausal bleeding. In light of her new onset atrial fibrillation with a history of hypertension, and current rapid heart rate, she will be admitted to the hospitalist service for management and evaluation. This was discussed with the patient, and her sister. Subjective Subjective Interval history since last seen: Patient seen alert and awake in the postanesthesia care unit. She denies pain, chest pain, shortness of breath. She does not feel like her heart is racing, however she is tachycardic. She was introduced to hospitalist, Dr. Rosas who will be managing her postoperative care in light of her new onset of atrial fibrillation. Exam Const General: cooperative, comfortable and no acute distress Neck Neck: normal visual inspection Resp Effort & Inspection: normal respiratory effort, no audible wheezes and no cough Cardio Rate: abnormal rate and tachycardic Rhythm: abnormal rhythm irregularly irregular GI Inspection: normal to inspection Palpation: soft, not firm and no guarding Objective Last Vital Signs Temp 97.9 F 08/09/25 11:45 Pulse 126 H 08/09/25 11:45 Resp 17 08/09/25 11:45 BP 145/84 H 08/09/25 11:45 Pulse Ox 96 08/09/25 11:45 VTE Prohylaxis Risk Level: Moderate/High Risk Contraindications: Other (Newly postop) Prophylaxis: Patient ambulatory Time Spent with Patient Time Spent with Patient: 35-49 minutes Time was spent: preparing to see the patient(eg.review tests), obtaining and/or reviewing separately otained hiistory, ordering medications,tests, procedures, referring, communicating with other health home care specialist, counseling the patient and care coordination
[2025-08-09 12:01] LABS: Anion Gap 8.3 mmol/L (3-11); BUN 12 mg/dL (9-23); CO2 27.7 mmol/L (20.0-31.0); Calcium 8.9 mg/dL (8.3-10.6); Chloride 106 mmol/L (98-107); Glucose 120 mg/dL (74-106); Potassium 4.2 mmol/L (3.5-5.1); Sodium 142 mmol/L (136-145)
[2025-08-09] MEDS: Metoprolol 5 MG/5 ML VIAL (12:20)
--- NOTE | 2025-08-09 12:47 | W.PM.HP.N ---
[facility] All Active Problems (Updated 08/09/25 @ 11:54 by Alina Flores DO) New onset atrial fibrillation (Acute) Status post dilation and curettage (Acute) Hysteroscopy, dilation and curettage 08/09/2025 Endometrial thickening on ultrasound (Acute) Vaginal bleeding (Acute) Vaginal discharge (Acute) Bacterial vaginosis (Acute) Elevated LFTs (Acute) Abnormal smell (Acute) Hypothyroidism (Acute 02/10/13) Vitamin D deficiency (Chronic 10/21/12) Serous retinal detachment (Chronic) Seizure-like activity (Chronic 01/07/16) Schizoaffective disorder (Chronic 08/30/13) autism spectrum, PTSD Pulmonary hypertension (Chronic 04/29/16) echo 05/09 small peripheal non occluding aterial clot 2016 Posttraumatic stress disorder (Chronic) Polyp of colon (Chronic 04/14/13) Mar 2013 5 [place] [place] 08/08[place] [facility] [place] Obstructive sleep apnea syndrome (Chronic) Aug 2015 [facility] sleep lab 06/01 [facility] [place] BEGIN C-PAP Mitral valve insufficiency (Chronic 04/29/16) Liver hemangioma (Chronic 12/22/14) 5x4 cm [place] [facility] [place] Impaired fasting glucose (Chronic 02/10/13) Hyperlipidemia (Chronic 02/10/13) Hirsutism (Chronic) Gastroesophageal reflux disease (Chronic) Essential hypertension (Chronic) Diaphoresis (Chronic 04/24/16) Chronic obstructive lung disease (Chronic) Balance disorder (Chronic 04/24/16) Autistic disorder (Chronic) Medical History (Updated 08/09/25 @ 11:54 by Alina Flores DO) Bradycardia (06/03/16) Elevated antinuclear antibody (MAYI) level (05/28/16) History of tobacco use Postmenopausal bleeding (08/30/13) Postmenopausal bleeding (08/30/13) [facility] eval and D&C, benign polyps Left sided numbness (04/27/15) [facility] [place]: ? migraine, ? seizure (EEG neg) Elevated blood pressure reading without diagnosis of hypertension (01/07/16) Elevated antinuclear antibody (MAYI) level (05/28/16) Surgical History (Updated 08/09/25 @ 11:53 by Alina Flores DO) Hx of detached retina repair History of cataract removal with insertion of prosthetic lens Cervical Procedure BX; BENIGN Extraction of cataract Family History Mother Essential hypertension Personal history of malignant neoplasm BREAST Stroke TIA Father Diabetes Essential hypertension Personal history of malignant neoplasm KIDNEY Heart disease Sister Essential hypertension Brother Essential hypertension Stroke Grandfather Personal history of malignant neoplasm Grandfather Diabetes Essential hypertension Heart disease Grandmother Diabetes Essential hypertension Heart disease Hyperlipidemia Stroke Grandmother Personal history of malignant neoplasm KIDNEY Social History Smoking/Tobacco Use Status: Former Tobacco Use tobacco type: cigarettes Quit Date: 08/24/08 Tobacco: How many years used: 30 Second Hand Exposure: Yes Smoking risk assessment performed?: Yes Alcohol Intake: never Drug use: Never Substance use type: does not use Caregiver/Support person: No Household members: none Housing: house Communication Needs: Corrective Lenses Do you need help understanding health information?: Always Pets and animals: No Sexually active: No Current gender identity: male How often do you talk on the phone with friends or family?: three or more times per week How often do you get together with friends or relatives?: three or more times per week Do you belong to any clubs or organized social groups?: no Panel score (0-1 are the most socially isolated patients): 1 Seatbelt use: always Do you feel safe at home: Yes Do you feel safe in your relationship?: Yes Additional Social history: UTAP Meds Allergies and Home Medications Allergies Allergy/AdvReac Type Severity Reaction Status Date / Time atorvastatin AdvReac Intermediate MYALGIAS Verified 08/09/25 08:15 divalproex sodium (From AdvReac Intermediate abdominal Verified 08/09/25 08:15 Depakote) pain Sulfa (Sulfonamide AdvReac Mild NAUSEA Verified 08/09/25 08:15 Antibiotics) tetracycline AdvReac Unknown GI UPSET Verified 08/09/25 08:15 Home Medications ?Medication ?Instructions ?Recorded ?Confirmed ?Type C-Pap 12/22/12 07/27/25 History docusate sodium 100 mg capsule 1 - 2 cap PO DAILY 02/10/13 08/09/25 History (Colace) aspirin 81 mg tablet,delayed 81 mg PO DAILY #100 tab-caps 04/28/15 08/09/25 History release cholecalciferol (vitamin D3) 25 1,000 unit PO DAILY 08/21/15 08/09/25 History mcg (1,000 unit) tablet omeprazole 20 mg tablet,delayed 20 mg PO DAILY #90 tabs 11/16/23 08/09/25 Rx release loxapine succinate 10 mg capsule 10 mg PO BID 09/05/24 08/09/25 History loxapine succinate 5 mg capsule 5 mg PO BID 09/05/24 08/09/25 History nebulizers (AeroEclipse II #1 ea 02/02/25 06/29/25 Rx Nebulizer) ipratropium 0.5 mg-albuterol 3 mg 3 ml inhalation QID PRN wheezing 02/10/25 08/09/25 Rx (2.5 mg base)/3 mL nebulization #180 mL soln albuterol sulfate 90 mcg/actuation 2 puff inhalation Q6H PRN 02/15/25 08/09/25 Rx aerosol inhaler shortness of breath or wheezing #8.5 grams inhalational spacing device #1 ea 02/22/25 06/29/25 Rx (Aerochamber MV spacer) risperidone 2 mg tablet 1 mg PO QHS 03/20/25 08/09/25 History metoprolol succinate 100 mg 100 mg PO DAILY #90 tab-caps 05/03/25 08/09/25 Rx tablet,extended release 24 hr diclofenac sodium 1 % topical gel 4 g topical QID #100 grams 06/12/25 08/09/25 Rx (Arthritis Pain (diclofenac)) clonazepam 0.5 mg tablet (Klonopin) 0.5 mg PO QID 06/29/25 08/09/25 History lisinopril 10 mg tablet 10 mg PO DAILY #90 tabs 06/29/25 08/09/25 Rx Results Labs 08/09/25 11:35 Labs: Laboratory Results - last 24 hr 08/09/25 11:35 Sodium 142 Potassium 4.2 Chloride 106 Carbon Dioxide 27.7 Anion Gap 8.3 BUN 12 Creatinine 0.55 Est GFR (CKD-EPI 2020) 111.63 Glucose 120 H Calcium 8.9 Last Vital Signs Temp 36.6 C 08/09/25 12:26 Pulse 121 H 08/09/25 12:26 Resp 13 08/09/25 12:26 BP 124/81 08/09/25 12:26 Pulse Ox 93 08/09/25 12:26 VTE Prohylaxis Risk Level: Moderate/High Risk Contraindications: Other (Newly postop) Prophylaxis: Patient ambulatory
[2025-08-09] MEDS: Normal Saline Flush 10 ML SYR IV (15:44)
[2025-08-09] MEDS: clonazePAM 0.5 MG TAB PO ×2 (15:44→20:30)
[2025-08-09 17:18] LABS: HCT 48.3 % (36.0-46.0); HGB 16.2 g/dL (11.2-15.7)
[2025-08-09 17:35] LABS: Anion Gap 9 mmol/L (3-11); BUN 14 mg/dL (9-23); CO2 25.0 mmol/L (20.0-31.0); Calcium 9.2 mg/dL (8.3-10.6); Chloride 107 mmol/L (98-107); Glucose 170 mg/dL (74-106); Potassium 4.3 mmol/L (3.5-5.1); Sodium 141 mmol/L (136-145)
--- NOTE | 2025-08-09 17:40 | W.ANESPOSTOP ---
Postoperative Evaluation Date, Time and Location Date Performed: 08/09/25 Time Performed: 14:20 Patient Location: PACU Vital Signs Most Recent Imported Vital Signs: Most Recent Vital Signs Temp Pulse Resp BP Pulse Ox 36.8 C 92 H 18 139/84 97 08/09/25 14:10 08/09/25 14:10 08/09/25 14:10 08/09/25 14:10 08/09/25 14:10 Pain Score Most Recent Pain Score: Most Recent Pain Score Pain Level 0 08/09/25 14:10 Assessment Mental Status: Awake (Alert & Oriented to Patient Baseline) Airway and Respiratory Function: Patent airway with normal (patient baseline) respiratory exam Cardiovascular Function: Hemodynamically Stable Hydration Status: Adequately Hydrated Nausea & Vomiting: No Nausea or Vomiting Pain: Pt. Denies Any Pain Peripheral Nerve Block: Patient did not receive a nerve block
--- NOTE | 2025-08-09 18:59 | W.MEDCONSULT ---
Date of service: 08/09/25 Time of Service: 12:00 Assessment and Plan Assessment and plan (1) Atrial fibrillation with rapid ventricular response: Status: Acute Assessment and plan: Patient given diltiazem 15 IV without improvement in elevated HR Then given metoprolol IV push which resulted in NSR with rate of 80 Patient admitted to [facility] with telemetry for overnight monitoring Unlikely that she will need ongoing treatment (anticoagulation, rate control) if she remains in NSR, as this was clearly provoked by procedural stress Appreciate Dr Flores ObGyn, for managing chronic issues History of Present Illness History of Present Illness Chief Complaint: post-operative rapid heart rate Narrative: Rosemary Davidson is a 65 year old woman who had gynecological procedure on August 09. She is developmentally disabled and very enthusiastic about all things medical. In the PACU she went into atrial fibrillation with rapid ventricular response with rates in the 150's. Medicine was consulted at this time. Patient had no symptoms of chest pain nor palpitations. She is awake and alert. PMH includes AUB now s/p D&C, autism, PTSD, schizoaffective disorder, systolic murmur, COPD, HTN PFSH All Active Problems (Updated 08/09/25 @ 19:19 by Shaw Faye MD) Atrial fibrillation with rapid ventricular response (Acute) New onset atrial fibrillation (Acute) Status post dilation and curettage (Acute) Hysteroscopy, dilation and curettage 08/09/2025 Endometrial thickening on ultrasound (Acute) Vaginal bleeding (Acute) Vaginal discharge (Acute) Bacterial vaginosis (Acute) Elevated LFTs (Acute) Abnormal smell (Acute) Hypothyroidism (Acute 02/10/13) Vitamin D deficiency (Chronic 10/21/12) Serous retinal detachment (Chronic) Seizure-like activity (Chronic 01/07/16) Schizoaffective disorder (Chronic 08/30/13) autism spectrum, PTSD Pulmonary hypertension (Chronic 04/29/16) echo 05/09 small peripheal non occluding aterial clot 2016 Posttraumatic stress disorder (Chronic) Polyp of colon (Chronic 04/14/13) Mar 2013 5 [place] [place] [facility] [place] Obstructive sleep apnea syndrome (Chronic) Aug 2015 [facility] sleep lab 06[place] [facility] [place] BEGIN C-PAP Mitral valve insufficiency (Chronic 04/29/16) Liver hemangioma (Chronic 12/22/14) 5x4 cm [place] [facility] [place] Impaired fasting glucose (Chronic 02/10/13) Hyperlipidemia (Chronic 02/10/13) Hirsutism (Chronic) Gastroesophageal reflux disease (Chronic) Essential hypertension (Chronic) Diaphoresis (Chronic 04/24/16) Chronic obstructive lung disease (Chronic) Balance disorder (Chronic 04/24/16) Autistic disorder (Chronic) Medical History (Updated 08/09/25 @ 19:19 by Shaw Faye MD) Bradycardia (06/03/16) Elevated antinuclear antibody (MAYI) level (05/28/16) History of tobacco use Postmenopausal bleeding (08/30/13) Postmenopausal bleeding (08/30/13) [facility] eval and D&C, benign polyps Left sided numbness (04/27/15) [facility] [place]: ? migraine, ? seizure (EEG neg) Elevated blood pressure reading without diagnosis of hypertension (01/07/16) Elevated antinuclear antibody (MAYI) level (05/28/16) Surgical History (Updated 08/09/25 @ 11:53 by Alina Flores DO) Hx of detached retina repair History of cataract removal with insertion of prosthetic lens Cervical Procedure BX; BENIGN Extraction of cataract Family History Mother Essential hypertension Personal history of malignant neoplasm BREAST Stroke TIA Father Diabetes Essential hypertension Personal history of malignant neoplasm KIDNEY Heart disease Sister Essential hypertension Brother Essential hypertension Stroke Grandfather Personal history of malignant neoplasm Grandfather Diabetes Essential hypertension Heart disease Grandmother Diabetes Essential hypertension Heart disease Hyperlipidemia Stroke Grandmother Personal history of malignant neoplasm KIDNEY Social History Smoking/Tobacco Use Status: Former Tobacco Use tobacco type: cigarettes Quit Date: 08/24/08 Tobacco: How many years used: 30 Second Hand Exposure: Yes Smoking risk assessment performed?: Yes Alcohol Intake: never Drug use: Never Substance use type: does not use Caregiver/Support person: No Household members: none Housing: house Communication Needs: Corrective Lenses Do you need help understanding health information?: Always Pets and animals: No Sexually active: No Current gender identity: male How often do you talk on the phone with friends or family?: three or more times per week How often do you get together with friends or relatives?: three or more times per week Do you belong to any clubs or organized social groups?: no Panel score (0-1 are the most socially isolated patients): 1 Seatbelt use: always Do you feel safe at home: Yes Do you feel safe in your relationship?: Yes Additional Social history: UTAP Exam Narrative Exam Narrative: General: This is a pleasant woman in no distress HEENT: Normocephalic, atraumatic CV: irregular rate and irregular rhythm with known systolic murmur Resp: CTAB Abd: soft, NTND MSK: voluntary motion x4 Neuro: awake, alert, no focal deficits Results Last Vital Signs Temp 36.8 C 08/09/25 14:10 Pulse 92 H 08/09/25 14:10 Resp 18 08/09/25 14:10 BP 139/84 08/09/25 14:10 Pulse Ox 97 08/09/25 14:10 Labs 08/09/25 17:00 08/09/25 17:00 Labs: Laboratory Results - last 24 hr 08/09/25 08/09/25 11:35 17:00 Hgb 16.2 H Hct 48.3 H Sodium 142 141 Potassium 4.2 4.3 Chloride 106 107 Carbon Dioxide 27.7 25.0 Anion Gap 8.3 9 BUN 12 14 Creatinine 0.55 0.56 Est GFR (CKD-EPI 2020) 111.63 109.33 Glucose 120 H 170 H Calcium 8.9 9.2
[2025-08-09] MEDS: LOXAPINE 10 MG 1 EACH PO (20:30)
[2025-08-09] MEDS: LOXAPINE SUCCINATE 5 MG 1 EACH PO (20:30)
[2025-08-09] MEDS: risperiDONE 1 MG TAB PO (20:30)
[2025-08-10 06:00] VITALS: BP 113/70; PULSE 105; RESP 18; TEMP 36.2; O2SAT 94
--- NOTE | 2025-08-10 09:26 | PDOC.CMIN ---
Date of service: 08/10/25 Time of Service: 09:26 Care Management Initial Assmt Initial Assessment Reason for Hospitalization: Afib Functional Status/Living Situation Patient Presentation: Victorina was ambulating in her room when CM met with her. She is pleasant and easily engages in conversation. She expresses that she loves being in the hospital and is going to miss everyone when she leaves. She proudly reviewed a simple drawing she had drawn with a green crayon, which she identified as a colonoscopy machine. She gave it to me and asked that it be given to the surgical team that was involved in her procedure. CM spoke with Victorina's sister Andreina via phone and she reports that Victorina lives alone in a trailer in [place]. Andreina ([facility]) lives in [place] and helps her pay bills, meal prep and provides her transportation. Victorina has services through [facility] and her sister reports that they go out to see her nearly everyday. Town of Residence: [place] Resides with: Alone Significant Other/Family: Local Natural Supports: Sister Andreina, [place] Support from 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, Groceries, Heat/Utilities, Laundry and Transportation Medications Medication Management: No Issues/Barriers identified Physical Functioning/Mobility Assistive Device: none Advance Directives Advance Directives: Do you have an Advance Directive: N 07/27/25, 14:08 AD On File at [facility]: N 07/27/25, 14:08 Date Asked 08/09/25 Today, 03:51 AD Date Reviewed COLST On File at [facility] COLST Date Scanned Code Status Resuscitation Status Full Code Insurance Coverage/Financial Issues Insurance: Medicare Part A & B - [id number] Medicaid of [place] - [id number] Care Team Visit Care Team Role Provider Type Georgette Cloud MD, [place] Primary Care Provider [facility] Alina Flores DO Admit Provider OSTEOPATHIC DOCTOR Attending Provider Discharge Anticipated Barriers to Discharge: None Identified Patient/Family Education Needs: Review discharge instructions, discuss Ask Me Three Transportation: Private vehicle Plan: Anticipate patient will discharge home via private vehicle with sister with resumption of community supports once medically ready for discharge. Patient will follow up with community providers and continue per her discharge plan of care. No new services are anticipated at the time of discharge. CM will follow. Social Determinants of Health Screening Social Determinants of health last assessed in clinic: 08/10/25 Will the Patient Participate in the Screening?: Yes Do you worry about having a steady place to live?: yes What is your living situation today?: I have housing today, but am worried about losing it Problems where you live: no known problems In the past 12 months, have you had to go without electric, gas, oil or water in your home?: no 1. Within the past 12 months, we worried whether our food would run out before we got money to buy more.: Never true 2. Within the past 12 months, the food we bought just didn't last and we didn't have money to get more.: Never true Has lack of transportation kept you from medical appointments or from doing things needed for daily living?: no Has anyone in your life made you feel unsafe or unsupported?: no How hard is it for you to pay for the very basics like food, housing, medical care, and heating? Would you say it is:: Not hard at all Do you want help finding or keeping work or a job?: I do not need or want help If for any reason you need help with day-to-day activities such as bathing, preparing meals, shopping, managing finances, etc., do you get the help you need?: I don?t need any help How often do you feel lonely or isolated from those around you?: Rarely Do you speak a language other than Egyptian at home?: No Health Related Social Needs Health related social needs: housing instability, housed, with risk of homelessness (Z59.811) and feeling lonely/isolated (Z60.8) Health related social needs details: owns her own home, but has concerns will not be able to afford it one day. PFSH All Active Problems (Updated 08/09/25 @ 19:19 by Shaw Faye MD) Atrial fibrillation with rapid ventricular response (Acute) New onset atrial fibrillation (Acute) Status post dilation and curettage (Acute) Hysteroscopy, dilation and curettage 08/09/2025 Endometrial thickening on ultrasound (Acute) Vaginal bleeding (Acute) Vaginal discharge (Acute) Bacterial vaginosis (Acute) Elevated LFTs (Acute) Abnormal smell (Acute) Hypothyroidism (Acute 06/20/13) Vitamin D deficiency (Chronic 10/21/12) Serous retinal detachment (Chronic) Seizure-like activity (Chronic 01/07/16) Schizoaffective disorder (Chronic 08/30/13) autism spectrum, PTSD Pulmonary hypertension (Chronic 04/29/16) echo 05/09 small peripheal non occluding aterial clot 2016 Posttraumatic stress disorder (Chronic) Polyp of colon (Chronic 04/14/13) Mar 2013 5 tubular adenoma [place] [place] repeat 3 yr 08/08; [facility] [place] Obstructive sleep apnea syndrome (Chronic) Aug 2015 [facility] sleep lab 06/01 [facility] [place]UDY, BEGIN C-PAP Mitral valve insufficiency (Chronic 04/29/16) Liver hemangioma (Chronic 12/22/14) 5x4 cm on MRI at [facility] [place] Impaired fasting glucose (Chronic 02/10/13) Hyperlipidemia (Chronic 02/10/13) Hirsutism (Chronic) Gastroesophageal reflux disease (Chronic) Essential hypertension (Chronic) Diaphoresis (Chronic 04/24/16) Chronic obstructive lung disease (Chronic) Balance disorder (Chronic 04/24/16) Autistic disorder (Chronic) Medical History (Updated 08/09/25 @ 19:19 by Shaw Faye MD) Bradycardia (06/03/16) Elevated antinuclear antibody (MAYI) level (05/28/16) History of tobacco use Postmenopausal bleeding (08/30/13) Postmenopausal bleeding (08/30/13) [facility] eval and D&C, benign polyps Left sided numbness (04/27/15) [facility] [place] Neuro eval: ? migraine, ? seizure (EEG neg) Elevated blood pressure reading without diagnosis of hypertension (01/07/16) Elevated antinuclear antibody (MAYI) level (05/28/16) Surgical History (Updated 08/09/25 @ 11:53 by Alina Flores DO) Hx of detached retina repair History of cataract removal with insertion of prosthetic lens Cervical Procedure BX; BENIGN Extraction of cataract Family History Mother Essential hypertension Personal history of malignant neoplasm BREAST Stroke TIA Father Diabetes Essential hypertension Personal history of malignant neoplasm KIDNEY Heart disease Sister Essential hypertension Brother Essential hypertension Stroke Grandfather Personal history of malignant neoplasm Grandfather Diabetes Essential hypertension Heart disease Grandmother Diabetes Essential hypertension Heart disease Hyperlipidemia Stroke Grandmother Personal history of malignant neoplasm KIDNEY Social History Smoking/Tobacco Use Status: Former Tobacco Use tobacco type: cigarettes Quit Date: 08/24/08 Tobacco: How many years used: 30 Second Hand Exposure: Yes Smoking risk assessment performed?: Yes Alcohol Intake: never Drug use: Never Substance use type: does not use Caregiver/Support person: No Household members: none Housing: house Communication Needs: Corrective Lenses Do you need help understanding health information?: Always Pets and animals: No Sexually active: No Current gender identity: male How often do you talk on the phone with friends or family?: three or more times per week How often do you get together with friends or relatives?: three or more times per week Do you belong to any clubs or organized social groups?: no Panel score (0-1 are the most socially isolated patients): 1 Seatbelt use: always Do you feel safe at home: Yes Do you feel safe in your relationship?: Yes Additional Social history: UTAP
[2025-08-10] MEDS: clonazePAM 0.5 MG TAB PO ×2 (10:11→12:17)
[2025-08-10] MEDS: Metoprolol CR 100 MG TABCR PO (10:11)
[2025-08-10] MEDS: LOXAPINE SUCCINATE 5 MG 1 EACH PO (10:12)
[2025-08-10] MEDS: Omeprazole 20 MG CAPCR PO (10:12)
[2025-08-10] MEDS: LOXAPINE 10 MG 1 EACH PO (10:12)
--- NOTE | 2025-08-10 12:33 | PGE_ITS ---
Date of Service Date of service: 08/10/25 Time of Service: 12:33 Subjective Subjective Interval history since last seen: Patient seen and examined this morning. Doing well. No issues or concerns. Her heart rate has been remained stable and in a sinus rhythm. No recurrence of her atrial fibrillation. Appreciate internal medicine management. Patient will be discharged home today. She will follow-up in our office for a postoperative check in 1 week, and with Dr. Cloud in 1 week as well. Exam Const General: cooperative, healthy appearing, comfortable, no acute distress, well developed and well groomed [facility] Head: normal to inspection Eyes General: appearance normal, both eyes and all related structures Neck Neck: normal visual inspection, supple, no anterior neck swelling and nontender Resp Effort & Inspection: normal respiratory effort, no audible wheezes and no cough Cardio Rate: regular rate Rhythm: regular rhythm Skin General skin exam: no rashes or lesions noted Extrem General: normal to inspection, no clubbing, cyanosis or edema and no calf tenderness bilaterally Psych Appearance: grossly normal Mental Status: mental status grossly normal Speech and Movement: speech and movement normal Mood: congruent mood Insight: insight good Judgment: judgment good Objective Last Vital Signs Temp 97.3 F L 08/09/25 20:32 Pulse 96 H 08/09/25 20:32 Resp 18 08/09/25 20:32 BP 134/93 H 08/09/25 20:32 Pulse Ox 97 08/09/25 20:32 Laboratory Results - last 24 hr 08/09/25 17:00 Hgb 16.2 H Hct 48.3 H Sodium 141 Potassium 4.3 Chloride 107 Carbon Dioxide 25.0 Anion Gap 9 BUN 14 Creatinine 0.56 Est GFR (CKD-EPI 2020) 109.33 Glucose 170 H Calcium 9.2 VTE Prohylaxis Risk Level: Moderate/High Risk Contraindications: Other (Newly postop) Prophylaxis: Patient ambulatory Time Spent with Patient Time Spent with Patient: 35-49 minutes Time was spent: preparing to see the patient(eg.review tests), obtaining and/or reviewing separately otained hiistory, ordering medications,tests, procedures, referring, communicating with other health patient care secretary, counseling the patient and care coordination
--- NOTE | 2025-08-10 12:34 | DSE_ITS ---
Date of service: 08/10/25 Time of Service: 12:34 DS: Diagnosis Discharge Diagnosis (1) Atrial fibrillation with rapid ventricular response: Status: Acute Asessment and Plan: Patient was admitted to the hospital on 08/09/2025 for hysteroscopy with dilation and curettage due to thickened endometrium and postmenopausal bleeding. Intraoperatively, she had an episode of bradycardia followed by new onset atrial fibrillation with a rapid ventricular response. For this reason, she was admitted to the hospital for observation and consultation with hospitalist performed. Patient converted to a sinus rhythm and was asymptomatic. She was discharged home postoperative day #1. She is comfortable with no pain or bleeding. She will be seen back in the office in 1 week for results of her hysteroscopy with dilation curettage and pathology, and with her primary care provider. (2) Status post dilation and curettage: Status: Acute (3) Vaginal bleeding: Status: Acute (4) Endometrial thickening on ultrasound: Status: Acute Discharge Plan Disposition Patient Disposition: Home Condition: Good Discharge Details Reason For Visit: Afib Admit Date/Time: 08/09/25 11:51 Admit Provider: Alina Flores Attending Provider: Alina Flores Primary Care Provider: Georgette Cloud Hospital Course Hospital Course: Patient was admitted for hysteroscopy with dilation and curettage for postmenopausal bleeding and thickened endometrium. Intraoperatively, she had an episode of bradycardia followed by atrial fibrillation with a rapid ventricular response. She was admitted over the night to the hospital with hospitalist service management. She converted to a normal sinus rhythm. She will be discharged to home today. She will follow-up in my office in 1 week for results and pathology, and with Dr. Cloud for short interval follow-up Home Meds and New Rx's Prescriptions: No Action loxapine succinate 5 mg capsule 5 mg PO BID loxapine succinate 10 mg capsule 10 mg PO BID risperidone 2 mg tablet 1 mg PO QHS diclofenac sodium [Arthritis Pain (diclofenac)] 1 % gel 4 g topical QID Qty: 100 0RF Rx Instructions: apply to single knee, ankle, foot; for foot includes sole/toes/top of foot clonazepam [Klonopin] 0.5 mg tablet 0.5 mg PO QID lisinopril 10 mg tablet 10 mg PO DAILY Qty: 90 5RF (DME) nebulizers [AeroEclipse II Nebulizer] Misc See Rx Instructions .Route Qty: 1 0RF Rx Instructions: As directed ipratropium-albuterol 0.5 mg-3 mg(2.5 mg base)/3 mL solution for nebulization 3 ml inhalation QID PRN (Reason: wheezing) Qty: 180 0RF (DME) C-PAP See Rx Instructions .ROUTE .MEDSUPPLY Rx Instructions: has not used since 07/07 FOR SLEEP APNEA docusate sodium [Colace] 100 MG capsule 1 - 2 cap PO DAILY Patient Comments: 06/30/14 prn. si aspirin 81 MG tablet,delayed release (DR/EC) 81 mg PO DAILY Qty: 100 cholecalciferol (vitamin D3) 1,000 UNIT tablet 1,000 unit PO DAILY omeprazole 20 mg tablet,delayed release (DR/EC) 20 mg PO DAILY Qty: 90 4RF albuterol sulfate 90 mcg/actuation HFA aerosol inhaler 2 puff inhalation Q6H PRN (Reason: shortness of breath or wheezing) Qty: 8.5 12RF (DME) Aerochamber MV Spacer See Rx Instructions .Route Qty: 1 0RF Rx Instructions: As directed metoprolol succinate 100 mg tablet extended release 24 hr 100 mg PO DAILY Qty: 90 3RF Rx Instructions: in place of 50mg tab Discharge Instructions Additional Instructions: Follow-up with Dr. Flores in 1 week Follow-up with Dr. Cloud in 1 week Stand Alone Forms: Anesthesia Discharge Inst., DSU Post BEVELER Surg W/O Incision, Reny Rosen (DSU), Portal Information Activity:: Activity as Tolerated Equipment/Supplies:: No Equipment Needed Diet:: As Tolerated Discharge Orders Discharge Orders: Discharge Order (Routine); Ordered 08/10/25 Ordered By: Alina Flores DS: Summary Time Spent with Patient providing and/or coordinating discharge services: Greater than 30 minutes Status at Discharge Functional status at discharge: independent ambulation Overall status at discharge: patient is back to baseline Mental Status: mental status grossly normal Speech and Movement: speech and movement normal Mood: congruent mood Affect: normal affect Quality:SDOH Health Related Social Needs: Health related social needs risk of homeless lonely/is olated Health related social needs details owns her own home, but has concerns will not be able to afford it one day. Health related social needs details: owns her own home, but has concerns will not be able to afford it one day. Exam Psych Mental Status: mental status grossly normal Speech and Movement: speech and movement normal Mood: congruent mood Affect: normal affect DS: Data Vitals/I&O Vitals and I&O: Vital Signs Temperature 97.3 F L 08/09/25 20:32 Temperature Source Temporal Artery Scan 08/09/25 20:32 Pulse 96 H 08/09/25 20:32 Pulse Rhythm Regular 08/09/25 14:10 Pulse 89 08/09/25 13:15 Respiratory Rate 18 08/09/25 20:32 Respiratory Effort Normal, Non-Labored 08/09/25 14:10 Respiratory Depth Normal 08/09/25 14:10 Respiratory Pattern Normal 08/09/25 14:10 Blood Pressure 134/93 H 08/09/25 20:32 Blood Pressure Mean 106 08/09/25 20:32 Pulse Oximetry 97 08/09/25 20:32 Respiratory End-tidal CO2 29 08/09/25 13:15 Oxygen Delivery Method Room Air 08/09/25 20:32 Oxygen Flow Rate 0 08/09/25 20:32 Pain Level 0 08/09/25 14:10 Intake & Output 08/09/25 08/10/25 08/10/25 23:59 11:59 23:59 Intake Total 700 / 1000 10 / 490 480 / 490 Balance 700 / 990 10 / 490 480 / 490 Weight 187 lb 15.987 oz Intake: IV 700 / 1000 10 / 10 Oral 480 / 480 Other: Urine Color [place] Urine Appearance Clear Urine Odor None Comment ind to toilet Emesis Description None Data Completed and Pending Pending Labs at Discharge: 08/09/25 08/09/25 11:35 17:00 Hgb 16.2 H Hct 48.3 H Sodium 142 141 Potassium 4.2 4.3 Chloride 106 107 Carbon Dioxide 27.7 25.0 Anion Gap 8.3 9 BUN 12 14 Creatinine 0.55 0.56 Est GFR (CKD-EPI 2020) 111.63 109.33 Glucose 120 H 170 H Calcium 8.9 9.2 PFSH All Active Problems (Updated 08/09/25 @ 19:19 by Shaw Faye MD) Atrial fibrillation with rapid ventricular response (Acute) New onset atrial fibrillation (Acute) Status post dilation and curettage (Acute) Hysteroscopy, dilation and curettage 08/09/2025 Endometrial thickening on ultrasound (Acute) Vaginal bleeding (Acute) Vaginal discharge (Acute) Bacterial vaginosis (Acute) Elevated LFTs (Acute) Abnormal smell (Acute) Hypothyroidism (Acute 02/10/13) Vitamin D deficiency (Chronic 10/21/12) Serous retinal detachment (Chronic) Seizure-like activity (Chronic 01/07/16) Schizoaffective disorder (Chronic 08/30/13) autism spectrum, PTSD Pulmonary hypertension (Chronic 04/29/16) echo 05/09 small peripheal non occluding aterial clot 2016 Posttraumatic stress disorder (Chronic) Polyp of colon (Chronic 04/14/13) Mar 2013 5 [place] [place] 3 [place] 08/08[place] [facility] [place] Obstructive sleep apnea syndrome (Chronic) Aug 2015 [facility] sleep lab 06/01 [facility] [place] [facility] [place] BEGIN C-PAP Mitral valve insufficiency (Chronic 04/29/16) Liver hemangioma (Chronic 12/22/14) 5x4 [place] [facility] [place] Impaired fasting glucose (Chronic 02/10/13) Hyperlipidemia (Chronic 02/10/13) Hirsutism (Chronic) Gastroesophageal reflux disease (Chronic) Essential hypertension (Chronic) Diaphoresis (Chronic 04/24/16) Chronic obstructive lung disease (Chronic) Balance disorder (Chronic 04/24/16) Autistic disorder (Chronic) Medical History (Updated 08/09/25 @ 19:19 by Shaw Faye MD) Bradycardia (06/03/16) Elevated antinuclear antibody (MAYI) level (05/28/16) History of tobacco use Postmenopausal bleeding (08/30/13) Postmenopausal bleeding (08/30/13) [facility] eval and D&C, benign polyps Left sided numbness (04/27/15) [facility] [place]: ? migraine, ? seizure (EEG neg) Elevated blood pressure reading without diagnosis of hypertension (01/07/16) Elevated antinuclear antibody (MAYI) level (05/28/16) Surgical History (Updated 08/09/25 @ 11:53 by Alina Flores DO) Hx of detached retina repair History of cataract removal with insertion of prosthetic lens Cervical Procedure BX; BENIGN Extraction of cataract Family History Mother Essential hypertension Personal history of malignant neoplasm BREAST Stroke TIA Father Diabetes Essential hypertension Personal history of malignant neoplasm KIDNEY Heart disease Sister Essential hypertension Brother Essential hypertension Stroke Grandfather Personal history of malignant neoplasm Grandfather Diabetes Essential hypertension Heart disease Grandmother Diabetes Essential hypertension Heart disease Hyperlipidemia Stroke Grandmother Personal history of malignant neoplasm KIDNEY Social History Smoking/Tobacco Use Status: Former Tobacco Use tobacco type: cigarettes Quit Date: 08/24/08 Tobacco: How many years used: 30 Second Hand Exposure: Yes Smoking risk assessment performed?: Yes Alcohol Intake: never Drug use: Never Substance use type: does not use Caregiver/Support person: No Household members: none Housing: house Communication Needs: Corrective Lenses Do you need help understanding health information?: Always Pets and animals: No Sexually active: No Current gender identity: male How often do you talk on the phone with friends or family?: three or more times per week How often do you get together with friends or relatives?: three or more times per week Do you belong to any clubs or organized social groups?: no Panel score (0-1 are the most socially isolated patients): 1 Seatbelt use: always Do you feel safe at home: Yes Do you feel safe in your relationship?: Yes Additional Social history: [employer] Time Spent with Patient Time Spent with Patient: <45 minutes Time was spent: preparing to see the patient(eg.review tests), obtaining and/or reviewing separately otained hiistory, ordering medications,tests, procedures, referring, communicating with other health assisted living care manager, counseling the patient and care coordination
--- NOTE | 2025-08-10 15:27 | CHAPLAIN ---
Victorina was up walking around her room when I visited. She showed me some drawings she'd done of different hospital machinery which she seems to know a lot about. She orders some equipment, like a pulseoxcimiter, from [facility]. Victorina says she does't mind being in the hospital as she likes to be around the equipment and meet new people. She was discharged later in the afternoon.
--- NOTE | 2025-08-10 17:38 | CMDISCH_ITS ---
Date of service: 08/10/25 Time of Service: 17:39 LACE Index Scoring Tool Questions: Length of Stay (in days): 1 Was the patient admitted via the E.D.?: No E.D. Visits: 0 Answers: Total Score: 1 Risk of Readmission: Low Risk Care Management Discharge Plan Reason for Hospitalization: afib Discharge Plan: Victorina is discharged home via private vehicle with her sister. She will follow up with community providers and continue per her discharge plan of care as directed. No new services are indicated prior to discharge. Patient/Family Education Needs: Review discharge instructions, discuss ask me three. SDOH Health Related Social Needs: Health related social needs risk of homeless lonely/is olated Health related social needs details owns her own home, but has concerns will not be able to afford it one day. Health related social needs details: owns her own home, but has concerns will not be able to afford it one day.
== END 2025-08-10 14:05 | disposition home or self-care (01) ==
LOC: MS 08-10 03:51
PROVIDERS: Family Medicine; Nurse Anesthetist, Certified Registered; Admitting Provider Obstetrics & Gynecology; PCP Family Medicine; Visit Provider Obstetrics & Gynecology
PROC: 0UDB8ZZ Extraction of Endometrium, Via Natural or Artificial Opening Endoscopic (ICD-10-PCS; CPT 58558; principal; 2025-08-09 09:00)
DX: N95.0 Postmenopausal bleeding (principal); I97.791 Other intraoperative cardiac functional disturbances during other surgery; I48.91 Unspecified atrial fibrillation; R00.1 Bradycardia, unspecified; R93.89 Abnormal findings on diagnostic imaging of other specified body structures; Z79.899 Other long term (current) drug therapy; F25.9 Schizoaffective disorder, unspecified; F43.10 Post-traumatic stress disorder, unspecified; F84.0 Autistic disorder; E55.9 Vitamin D deficiency, unspecified; E03.9 Hypothyroidism, unspecified; I27.20 Pulmonary hypertension, unspecified; G40.909 Epilepsy, unspecified, not intractable, without status epilepticus; G47.33 Obstructive sleep apnea (adult) (pediatric); Y83.8 Other surgical procedures as the cause of abnormal reaction of the patient, or of later complication, without mention of misadventure at the time of the procedure; Y92.234 Operating room of hospital as the place of occurrence of the external cause; I10 Essential (primary) hypertension; J44.9 Chronic obstructive pulmonary disease, unspecified; H33.8 Other retinal detachments; I34.0 Nonrheumatic mitral (valve) insufficiency; E78.5 Hyperlipidemia, unspecified; Z87.891 Personal history of nicotine dependence
CPT/HCPCS: 58558; 00123; 36415; 80048; 88305; 85014; 85018; 93005; 93010; 99221; G0378; J1100; J1885; J2003; J2371; J2405; J2704